=== PATIENT | female | born 1940 | race Two or more races ===

== ENCOUNTER 2017-10-02 11:29 | Outpatient (CLI) | payer OTHER | END 2017-10-02 11:31 | disposition home or self-care (01) | LOC: SONOGRAMA 11:29 | DX: E03.8 Other specified hypothyroidism (principal) ==

== ENCOUNTER → 2018-07-02 | Outpatient (CLI) | payer OTHER | END | disposition home or self-care (01) | LOC: NUCLEAR 10:00 | DX: M81.0 Age-related osteoporosis without current pathological fracture (principal) ==

== ENCOUNTER 2019-07-23 08:44 | Outpatient (CLI) | payer OTHER | END 2019-07-23 08:53 | disposition home or self-care (01) | LOC: TOM 08:44 | DX: R10.32 Left lower quadrant pain (principal); K57.32 Diverticulitis of large intestine without perforation or abscess without bleeding; K63.5 Polyp of colon ==

== ENCOUNTER 2022-07-24 14:01 | Outpatient (CLI) | payer OTHER | END 2022-07-24 14:07 | disposition home or self-care (01) | LOC: TOM 14:01 | PROVIDERS: ATTEND Specialist | DX: N39.0 Urinary tract infection, site not specified (principal); N20.0 Calculus of kidney ==

== ENCOUNTER 2022-08-19 15:21 | Outpatient (CLI) | payer OTHER | END 2022-08-19 15:36 | disposition home or self-care (01) | LOC: RAD 15:21 | PROVIDERS: ATTEND Specialist | DX: N20.0 Calculus of kidney (principal) ==

== ENCOUNTER → 2022-08-21 | Outpatient (CLI) | payer OTHER | END | disposition home or self-care (01) | LOC: SONOGRAMA 10:26 | DX: N20.0 Calculus of kidney (principal); R10.84 Generalized abdominal pain ==

== ENCOUNTER 2023-01-22 12:42 | Outpatient (CLI) | payer OTHER | END 2023-01-22 12:44 | disposition home or self-care (01) | LOC: NUCLEAR 12:42 | PROVIDERS: ATTEND Specialist | DX: G31.9 Degenerative disease of nervous system, unspecified (principal); I10 Essential (primary) hypertension | CPT/HCPCS: 78803; A9557 ==

== ENCOUNTER → 2023-01-22 | Outpatient (CLI) | payer OTHER | END | disposition home or self-care (01) | LOC: MRI 11:22 | DX: N20.0 Calculus of kidney (principal); N39.0 Urinary tract infection, site not specified; G31.9 Degenerative disease of nervous system, unspecified; I10 Essential (primary) hypertension | CPT/HCPCS: 70551 ==